=== PATIENT | female | born 1985 | race American Indian/Alaskan Native ===

== ENCOUNTER 2022-03-07 22:27 | Emergency (ER) | payer MEDICAID, OTHER ==
[2022-03-08 00:21] LABS: Alanine Aminotransferase 8 units/L (7-56); Albumin 4.3 g/dL (3.9-5); Blood Urea Nitrogen 12 mg/dL (7-17); Calcium 9.1 mg/dL (8.4-10.2); Hemolysis Index 7
[2022-03-08 00:30] VITALS: BP 133/81
--- NOTE | 2022-03-08 00:30 | XRay Report ---
CHEST 1 VIEW INDICATION / CLINICAL INFORMATION: cough, chest ache, Covid+. COMPARISON: None available. FINDINGS: SUPPORT DEVICES: None. HEART / MEDIASTINUM: No significant abnormality. LUNGS / PLEURA: No significant pulmonary abnormality. BONES: No significant osseous abnormality. ADDITIONAL FINDINGS: No significant additional findings. IMPRESSION: 1. No active cardiopulmonary disease. Signer Name: Matt Balderrama II, MD Signed: 03/08/2022 12:26 AM Workstation Name: [id number]
[2022-03-08 00:59] LABS: BUN/Creatinine Ratio 17
--- NOTE | 2022-03-08 01:42 | Emergency Department Report ---
ED General Adult HPI - General Chief complaint: Upper Respiratory Infection Stated complaint: COVID 19 POSITIVE/FLU SX Time Seen by Provider: 03/07/22 23:31 Source: EMS Mode of arrival: Stretcher Limitations: No Limitations - History of Present Illness Initial comments: 37-year-old female Rick emerged department complaining of cough congestion coryza. She has been sick for the last 3 days and took a COVID test on yesterday and results came back positive today so she came to emergency department seeking further evaluation and treatment options. She reports having some vaginal tightness to the chest some wheezes and sensation coughing reports no hemoptysis or diarrhea, no rashes, Severity scale (0 -10): 0 Consistency: constant Improves with: none Worsens with: none - Related Data Home Medications Medication Instructions Recorded Confirmed Last Taken Vits96/Iron Fum/Folic 1 tab PO QDAY 12/11/13 12/11/13 12/11/13 [ Tablet] Previous Rx's Medication Instructions Recorded Last Taken Type Ondansetron [Zofran] 4 mg PO Q6HR PRN #10 tablet 12/11/13 Unknown Rx Albuterol Mdi (or & Nicu Only) 1 puff IH QID PRN #8.5 gram 03/08/22 Unknown Rx [ProAir HFA Inhaler] Ketorolac [Toradol] 10 mg PO Q6H PRN #10 03/08/22 Unknown Rx Allergies Allergy/AdvReac Type Severity Reaction Status Date / Time No Known Allergies Allergy Unverified 12/11/13 16:41 ED Review of Systems ROS: Stated complaint: COVID 19 POSITIVE/FLU SX Other details as noted in HPI Comment: All other systems reviewed and negative ED Past Medical Hx - Past Medical History Previous Medical History?: No - Surgical History Past Surgical History?: Yes Additional Surgical History: tonsillectomy, eye surgery - Social History Smoking Status: Unknown if ever smoked Substance Use Type: None - Medications Home Medications: Home Medications Medication Instructions Recorded Confirmed Last Taken Type Ondansetron [Zofran] 4 mg PO Q6HR PRN #10 tablet 12/11/13 Unknown Rx Vits96/Iron Fum/Folic 1 tab PO QDAY 12/11/13 12/11/13 12/11/13 History [ Tablet] Albuterol Mdi (or & Nicu Only) 1 puff IH QID PRN #8.5 gram 03/08/22 Unknown Rx [ProAir HFA Inhaler] Ketorolac [Toradol] 10 mg PO Q6H PRN #10 03/08/22 Unknown Rx ED Physical Exam - General Limitations: No Limitations General appearance: alert, in no apparent distress - Head Head exam: Present: atraumatic, normocephalic - Eye Eye exam: Present: normal appearance, PERRL - ENT ENT exam: Present: mucous membranes moist - Neck Neck exam: Present: normal inspection - Respiratory Respiratory exam: Present: normal lung sounds bilaterally. Absent: respiratory distress - Cardiovascular Cardiovascular Exam: Present: regular rate, normal rhythm. Absent: systolic murmur, diastolic murmur, rubs, gallop - GI/Abdominal GI/Abdominal exam: Present: soft, normal bowel sounds - Extremities Exam Extremities exam: Present: normal inspection - Back Exam Back exam: Present: normal inspection - Neurological Exam Neurological exam: Present: alert, oriented X3 - Psychiatric Psychiatric exam: Present: normal affect, normal mood - Skin Skin exam: Present: warm, dry, intact, normal color. Absent: rash ED Course Vital Signs 03/07/22 03/08/22 03/08/22 23:01 00:29 00:30 Temperature 99.1 F Pulse Rate 76 88 Respiratory 18 18 18 Rate Blood Pressure 128/86 Blood Pressure 128/86 133/81 [Right] O2 Sat by Pulse 100 97 97 Oximetry 03/08/22 00:31 Temperature 98.0 F Pulse Rate 88 Respiratory 17 Rate Blood Pressure 133/81 Blood Pressure [Right] O2 Sat by Pulse 97 Oximetry ED Medical Decision Making - Lab Data Result diagrams: 03/07/22 23:52 - Radiology Data Radiology results: report reviewed [facility] [address] [place] [address] XRay Report Signed Patient: TANESHA CALLAWAY MR#: [id number] : 1985 Acct:[id number] Age/Sex: 37 / F ADM Date: 03/07/22 Loc: ED Attending Dr: Ordering Physician: CASSANDRA FINCH Date of Service: 03/07/22 Procedure(s): XR chest 1V ap Accession Number(s): [id number] cc: CASSANDRA FINCH Fluoro Time In Minutes: CHEST 1 VIEW INDICATION / CLINICAL INFORMATION: cough, chest ache, Covid+. COMPARISON: None available. FINDINGS: SUPPORT DEVICES: None. HEART / MEDIASTINUM: No significant abnormality. LUNGS / PLEURA: No significant pulmonary abnormality. BONES: No significant osseous abnormality. ADDITIONAL FINDINGS: No significant additional findings. IMPRESSION: 1. No active cardiopulmonary disease. Signer Name: Ab Balderrama II, MD Signed: 03/08/2022 12:26 AM Workstation Name: [id number] Transcribed By: CALEB Dictated By: AB BALDERRAMA II, MD Electronically Authenticated By: AB BALDERRAMA II, MD Signed Date/Time: 03/08/2225 DD/ TD/TT: Print Cancel - Medical Decision Making 37-year-old patient presents to the emergency department with fever and lower respiratory symptoms concerning for viral syndrome including flu and COVID-19. Patient has tested positive for COVID-19 infection and there are no associated comorbidities. Chest x-ray at this point shows no pneumonia and she is maintaining a normal saturation. Differential diagnosis includes other viral causes of lower respiratory symptoms, pneumonia, asthma, bronchitis. Patient is well-appearing with acceptable vitals, lacks comorbidities admission and a reassuring physical examination and is safe to be discharged home nasal swab for COVID testing is recommended. Provide strict return precautions and instructions on self isolation/quarantine and anticipatory guidance. Critical care attestation.: If time is entered above; I have spent that time in minutes in the direct care of this critically ill patient, excluding procedure time. ED Disposition Clinical Impression: COVID-19, Cough Disposition: 01 HOME / SELF CARE / HOMELESS Is pt being admited?: No Does the pt Need Aspirin: No Condition: Stable Instructions: COVID-19 Frequently Asked Questions, COVID-19, Cough, Adult, Prevent the Spread of COVID-[facility] if You Are [facility] Prescriptions: Albuterol Mdi (or & Nicu Only) [ProAir HFA Inhaler] 1 puff IH QID PRN #8.5 gram PRN Reason: sob Ketorolac [Toradol] 10 mg PO Q6H PRN #10 PRN Reason: Pain Referrals: PRIMARY CARE, [Primary Care Provider] - 3-5 Days
[2022-03-08 02:35] LABS: Hematocrit 40.2 % (30.3-42.9); Hemoglobin 13.4 gm/dl (10.1-14.3); Mean Corpuscular HGB Conc 33 % (30-34); Mean Corpuscular Volume 86 fl (79-97); Platelet Count 176 K/mm3 (140-440); Red Blood Count 4.68 M/mm3 (3.65-5.03); Red Cell Distribution Width 13.1 % (13.2-15.2)
[2022-03-08 04:47] LABS: Anisocytosis 1+; Basophils % (Manual) 0 % (0.0-1.8); Total Cells Counted 100
[2022-03-08 04:48] LABS: Platelet Estimate Consistent w Auto
== END 2022-03-08 02:57 | disposition home or self-care (01) ==
LOC: ED 22:27
DX: U07.1 COVID-19 (principal); R05.9 Cough, unspecified
CPT/HCPCS: 36415; 71045; 80053; 85007; 85025; 99284